=== PATIENT | male | born 1985 ===

== ENCOUNTER 2018-06-16 09:56 | Emergency (ER) | payer MEDICAID ==
[2018-06-16 10:14] VITALS: RESP 18; TEMP 98.3
[2018-06-16] MEDS ORDERED: Tetracaine 0.5% Ophth (OR ONLY) ONE (10:43)
[2018-06-16] MEDS ORDERED: Fluorescein 1 mg Ophthalmic Strip ONE (10:43)
--- NOTE | 2018-06-16 11:26 | C.PDOC ---
History Of Present Illness 33 y/o M p/w R eye pain x 2 days. Patient states was cleaning yesterday and thinks a small piece of metal went into his eye after which he has had constant pain, irritation, watery discharge. Denies discharge of pus, vision change, fever. Time Seen by Provider: 06/16/18 10:04 Chief Complaint (Nursing): Foreign Body Past Medical History Vital Signs: Last Vital Signs Temp 98.3 F 06/16/18 10:04 Pulse 78 06/16/18 10:04 Resp 18 06/16/18 10:04 BP 119/69 06/16/18 10:04 Pulse Ox 100 06/16/18 10:04 Family History: States: No Known Family Hx - Social History Hx Alcohol Use: No Hx Substance Use: No - Immunization History Hx Tetanus Toxoid Vaccination: No Hx Influenza Vaccination: No Hx Pneumococcal Vaccination: No Review Of Systems Except As Marked, All Systems Reviewed And Found Negative. Constitutional: Negative for: Fever Eyes: Negative for: Vision Change Physical Exam - Physical Exam Additional Physical Exam Comments: gen lying in stretcher, eyes closed, nad head nc/at eyes perrl. no eyelid inflammation, no purulent discharge, no hyphema, no pupil abnormality. R eye with punctate foreign object seen on cornea. after staining, no abrasion or saira sign. no dentritic lesions neck supple cv reg rate extremities no edema skin no rash neuro alert ED Course And Treatment O2 Sat by Pulse Oximetry: 100 Medical Decision Making Medical Decision Making: Discussed with Dr. Burgos's office, will see patient in office at 1:30pm today. Disposition Discussed With : Talha Burgos Doctor Will See Patient In The: Office - Disposition Referrals: Talha Burgos [Staff Provider] - Disposition: HOME/ ROUTINE Disposition Time: 11:55 Condition: GOOD Instructions: Foreign Body in Eye Forms: [employer] ([place]uan) - Clinical Impression Clinical Impression: Corneal foreign body
[2018-06-16 12:26] VITALS: BP 127/72; PULSE 75; O2SAT 97
== END 2018-06-16 12:06 | disposition home or self-care (01) ==
LOC: C.ER 09:56
DX: T15.01XA Foreign body in cornea, right eye, initial encounter (principal); X58.XXXA Exposure to other specified factors, initial encounter

== ENCOUNTER 2018-07-05 20:25 | Observation (INO) | payer MEDICAID ==
[2018-07-05 20:38] VITALS: RESP 20
[2018-07-05] MEDS ORDERED: Albuterol-Ipratrop 3 mg / 0.5 (3 ml) UD IH STA (21:27)
[2018-07-05] MEDS ORDERED: Albuterol 0.083% Inhal Sol (2.5 mg/3 mL) UD INH STA (21:27)
[2018-07-05] MEDS ORDERED: Sodium Chloride 0.9% 1,000 ML IV STA (21:30)
[2018-07-05] MEDS ORDERED: Albuterol 0.083% Inhal Sol (2.5 mg/3 mL) UD IH STA (21:31)
[2018-07-05] MEDS ORDERED: Albuterol-Ipratrop 3 mg / 0.5 (3 ml) UD ONE (21:38)
[2018-07-05] MEDS ORDERED: Albuterol 0.083% Inhal Sol (2.5 mg/3 mL) UD ONE (21:38)
[2018-07-05] MEDS ORDERED: Magnesium Sulfate 1 gm in D5W 1 GM/100 ML BAG IV STA (21:58)
[2018-07-05] MEDS ORDERED: Magnesium Sulfate 1 gm in D5W 1 GM/100 ML BAG IVPB ONE (22:07)
--- NOTE | 2018-07-05 22:30 | C.PDOC ---
History Of Present Illness 33 year old male with PMHx of asthma presents to the ED for evaluation of asthma exacerbation for the past 4 days. Patient currently c/o nasal congestion, runny nose, sore throat and wheezing. Patient denies fever, chills, CP, palpitations, rash, recent travel, sick contacts. <Miriam Estrada - Last Filed: 07/05/18 23:04> History Per: Patient History/Exam Limitations: no limitations Onset/Duration Of Symptoms: Days (4) Current Symptoms Are (Timing): Still Present Associated Symptoms: Cough, URI Preciptating Factors: URI Severity: None Recent travel outside of the [place]: No Additional History Per: Patient <Miriam Estrada - Last Filed: 07/05/18 23:04> <Klever Atkins - Last Filed: 07/05/18 23:57> Time Seen by Provider: 07/05/18 21:11 Chief Complaint (Nursing): Cough, Cold, Congestion Past Medical History Reviewed: Historical Data, Nursing Documentation, Vital Signs Vital Signs: Last Vital Signs Temp 98.0 F 07/05/18 20:30 Pulse 86 07/05/18 20:30 Resp 20 07/05/18 20:30 BP 120/77 07/05/18 20:30 Pulse Ox 97 07/05/18 20:30 - Medical History PMH: Asthma Surgical History: No Surg Hx Family History: States: Unknown Family Hx - Social History Hx Alcohol Use: No Hx Substance Use: No - Immunization History Hx Tetanus Toxoid Vaccination: No Hx Influenza Vaccination: No Hx Pneumococcal Vaccination: No <Miriam Estrada - Last Filed: 07/05/18 23:04> Vital Signs: Last Vital Signs Temp 97.9 F 07/05/18 23:46 Pulse 62 07/05/18 23:46 Resp 20 07/05/18 23:46 BP 119/79 07/05/18 23:46 Pulse Ox 97 07/05/18 23:46 <Klever Atkins - Last Filed: 07/05/18 23:57> Review Of Systems Constitutional: Negative for: Fever, Chills ENT: Positive for: Nose Discharge, Nose Congestion, Throat Pain Respiratory: Positive for: Cough, Wheezing. Negative for: Shortness of Breath Gastrointestinal: Negative for: Nausea, Vomiting, Abdominal Pain Skin: Negative for: Rash Neurological: Negative for: Headache <Miriam Estrada - Last Filed: 07/05/18 23:04> Physical Exam - Physical Exam Appears: Non-toxic, No Acute Distress Skin: Normal Color, Warm, Dry, No Rash Head: Atraumatic, Normacephalic Eye(s): bilateral: Normal Inspection Ear(s): Bilateral: Normal Oral Mucosa: Moist Throat: Normal, No Erythema, No Exudate Neck: Normal ROM, Supple Chest: Symmetrical Cardiovascular: Rhythm Regular Respiratory: No Rales, No Rhonchi, Wheezing Gastrointestinal/Abdominal: Soft, No Tenderness Extremity: Normal ROM, No Tenderness, No Swelling Neurological/Psych: Oriented x3, Normal Speech, Normal Cognition Gait: Steady <Miriam Estrada - Last Filed: 07/05/18 23:04> ED Course And Treatment - Laboratory Results Result Diagrams: 07/05/18 22:46 O2 Sat by Pulse Oximetry: 97 (ON RA) Pulse Ox Interpretation: Normal - Radiology CXR: Interpreted by Ak CXR Interpretation: Yes: No Acute Disease Progress Note: Plan: - CXR. - Duoneb x 1. - Albuterol neb x 2. - Solumedrol 125 mg IVP. On re-eval he still wheezing and congested. Mag sulfate and Flonase orederd. Labs are ordered. Case was signed out to Dr. Atkins at 23:00. <Miriam Estrada - Last Filed: 07/05/18 23:04> - Laboratory Results Result Diagrams: 07/05/18 22:46 07/05/18 22:46 Lab Results: Total Bilirubin 0.5 mg/dL (0.2-1.3) 07/05/18 22:46 AST 28 U/L (17-59) 07/05/18 22:46 ALT 20 U/L (21-72) L 07/05/18 22:46 Alkaline Phosphatase 80 U/L (38-126) 07/05/18 22:46 Total Protein 7.4 g/dL (6.3-8.3) 07/05/18 22:46 Albumin 4.6 g/dL (3.5-5.0) 07/05/18 22:46 Globulin 2.8 gm/dL (2.2-3.9) 07/05/18 22:46 Albumin/Globulin Ratio 1.6 (1.0-2.1) 07/05/18 22:46 <Klever Atkins - Last Filed: 07/05/18 23:57> Disposition - Disposition Disposition Time: 23:08 <Miriam Estrada - Last Filed: 07/05/18 23:04> <Klever Atkins - Last Filed: 07/05/18 23:57> - Disposition Disposition: HOSPITALIZED Condition: FAIR Forms: [facility] (South African) - Clinical Impression Clinical Impression: Asthma exacerbation - PA / RESEARCH [employer] ENGINEER / Resident Statement MD/DO has reviewed & agrees with the documentation as recorded. - Scribe Statement The provider has reviewed the documentation as recorded by the Scribe Deon Wagner All medical record entries made by the Scribe were at my direction and personally dictated by me. I have reviewed the chart and agree that the record accurately reflects my personal performance of the history, physical exam, medical decision making, and the department course for this patient. I have also personally directed, reviewed, and agree with the discharge instructions and disposition. <Miriam Estrada - Last Filed: 07/05/18 23:04> Physician Patient Turnover Patient Signed Over To: Klever Atkins Handoff Comments: labs pending, re-eval, dispo <Miriam Estrada - Last Filed: 07/05/18 23:04>
[2018-07-05] MEDS ORDERED: Fluticasone Nasal 50 mcg/Spray NAS STA (22:41)
[2018-07-05 23:02] LABS: BASO # 0.1 K/uL (0.0-0.2); BASO % 0.6 % (0.0-2.0); EOS # 0.8 K/uL (0.0-0.7); HEMOGLOBIN 13.6 g/dL (12.0-18.0); LYMPH # 2.2 K/uL (1.0-4.3); LYMPH % 22.1 % (20.0-40.0); MEAN CELL VOLUME 85.9 fL (80.0-94.0); MEAN CORPUSCULAR HEMOGLOBIN 29.1 pg (27.0-31.0); MEAN CORPUSCULAR HGB CONC 33.9 g/dL (33.0-37.0); MEAN PLATELET VOLUME 8.3 fL (7.2-11.7); MONO # 0.7 K/uL (0.0-0.8); MONO % 7.6 % (0.0-10.0); NEUT % 61.7 % (50.0-75.0); RBC 4.67 Mil/uL (4.40-5.90); RED CELL DISTRIBUTION WIDTH 13.1 % (11.5-14.5); WHITE BLOOD COUNT 9.7 K/uL (4.8-10.8)
[2018-07-05 23:06] LABS: ALB/GLOB RATIO 1.6 (1.0-2.1); ALBUMIN 4.6 g/dL (3.5-5.0); ALT/SGPT 20 U/L (21-72); AST/SGOT 28 U/L (17-59); BLOOD UREA NITROGEN 14 mg/dL (9-20); CALCIUM 8.9 mg/dl (8.6-10.4); GFR NON-AFRICAN AMERICAN > 60
[2018-07-06] MEDS ORDERED: Albuterol-Ipratrop 3 mg / 0.5 (3 ml) UD INH PRN (01:03)
[2018-07-06] MEDS ORDERED: cefTRIAXone IV 1 gm in Dextros 50 ML IVPB SCH (10:00)
[2018-07-06] MEDS ORDERED: cefTRIAXone 1 gm in cefTRIAXone IV 1 gm in Dextros 50 ML IVPB SCH (10:00)
--- NOTE | 2018-07-06 10:01 | RAD ---
Date of service: 07/05/2018 HISTORY: Cough COMPARISON: No prior. TECHNIQUE: Chest PA and lateral FINDINGS: LINES AND TUBES: None. LUNG AND PLEURA: The lungs are well inflated and clear. No pleural effusion or pneumothorax. HEART AND MEDIASTINUM: The heart is not enlarged. No aortic atherosclerotic calcifications present. The hilar and mediastinal contours are within normal limits. SKELETAL STRUCTURES: The bony structures are within normal limits for the patient's age. VISUALIZED UPPER ABDOMEN: Normal. OTHER FINDINGS: None. IMPRESSION: No active pulmonary disease.
--- NOTE | 2018-07-06 12:19 | CP.PCM.HP ---
History of Present Illness - History of Present Illness History of Present Illness: 33 year old male with PMHx of asthma presents to the ED for evaluation of asthma exacerbation for the past 4 days. Patient currently c/o nasal congestion, runny nose, sore throat and wheezing Present on Admission - Present on Admission Any Indicators Present on Admission: No Review of Systems - Constitutional Constitutional: absent: As Per HPI, Anorexia, Chills, Daytime Sleepiness, Excessive Sweating, Fatigue, Fever, Frequent Falls, Headache, Increased Appetite, Lethargy, Malaise, Night Sweats, Snoring, Sleep Apnea, Weight Gain, Weight Loss, Weakness, Other - EENT Eyes: absent: As Per HPI, Blind Spots, Blurred Vision, Change in Vision, Decreased Night Vision (WHEEZING ), Diplopia, Discharge, Dry Eye, Exophthalmos, Floaters, Irritation, Itchy Eyes, Loss of Peripheral Vision, Pain, Photophobia, Requires Corrective Lenses, Sees Flashes, Spots in Vision, Tunnel Vision, Other Visual Disturbances, Loss of Vision, Other Past Patient History - Past Medical History & Family History Past Medical History?: Yes - Past Social History Smoking Status: Never Smoked - PULMONARY Hx Asthma: Yes - MUSCULOSKELETAL/RHEUMATOLOGICAL Hx Falls: No - PSYCHIATRIC Hx Substance Use: No - SURGICAL HISTORY Hx Surgeries: Yes Hx Musculoskeletal Surgery: Yes (lumbar) - ANESTHESIA Hx Anesthesia: Yes Hx Anesthesia Reactions: No Meds Allergies/Adverse Reactions: Allergies Allergy/AdvReac Type Severity Reaction Status Date / Time apple Allergy ITCHING Verified 07/06/18 07:45 pollen extracts Allergy COUGH Verified 07/06/18 07:45 shrimp Allergy RASH Verified 07/06/18 07:45 Physical Exam - Constitutional Appears: Well - Head Exam Head Exam: ATRAUMATIC, NORMAL INSPECTION, NORMOCEPHALIC - Eye Exam Eye Exam: EOMI, Normal appearance, PERRL - ENT Exam ENT Exam: Mucous Membranes Moist - Respiratory Exam Respiratory Exam: Rhonchi, Wheezes - Cardiovascular Exam Cardiovascular Exam: REGULAR RHYTHM - GI/Abdominal Exam GI & Abdominal Exam: Normal Bowel Sounds, Soft. absent: Tenderness - Extremities Exam Extremities exam: Positive for: normal inspection - Back Exam Back exam: NORMAL INSPECTION - Neurological Exam Neurological exam: Alert, CN II-XII Intact, Normal Gait, Oriented x3, Reflexes Normal - Psychiatric Exam Psychiatric exam: Anxious Results - Vital Signs Recent Vital Signs: Last Vital Signs Temp 98.4 F 07/06/18 08:00 Pulse 71 07/06/18 08:00 Resp 20 07/06/18 08:00 BP 110/69 07/06/18 08:00 Pulse Ox 97 07/06/18 08:00 - Labs Result Diagrams: 07/05/18 22:46 07/05/18 22:46 Labs: Laboratory Results - last 24 hr 07/05/18 07/05/18 22:46 22:46 WBC 9.7 RBC 4.67 Hgb 13.6 Hct 40.1 MCV 85.9 MCH 29.1 MCHC 33.9 RDW 13.1 Plt Count 303 MPV 8.3 Neut % (Auto) 61.7 Lymph % (Auto) 22.1 Park % (Auto) 7.6 Eos % (Auto) 8.0 H Baso % (Auto) 0.6 Neut # (Auto) 6.0 Lymph # (Auto) 2.2 Park # (Auto) 0.7 Eos # (Auto) 0.8 H Baso # (Auto) 0.1 Sodium 140 Potassium 3.1 L Chloride 102 Carbon Dioxide 23 Anion Gap 18 BUN 14 Creatinine 0.7 L Est GFR ( Amer) > 60 Est GFR (Non-Af Amer) > 60 Random Glucose 141 H Calcium 8.9 Total Bilirubin 0.5 AST 28 ALT 20 L Alkaline Phosphatase 80 Total Protein 7.4 Albumin 4.6 Globulin 2.8 Albumin/Globulin Ratio 1.6 Assessment & Plan (1) Respiratory infection Status: Acute (2) Asthma exacerbation Status: Acute
[2018-07-06 15:44] VITALS: BP 124/80; TEMP 97.8; O2SAT 96
[2018-07-06 15:59] VITALS: PULSE 88
[2018-07-08] MEDS ORDERED: Pneumococcal 23-Valent Vaccine IM ONE (10:03)
== END 2018-07-06 19:53 | disposition left against medical advice (07) ==
LOC: C.ER 20:25 → C.9E 23:55 → C.5S 07-06 00:46
PROVIDERS: ADMIT Internal Medicine Cardiovascular Disease; ATTEND Internal Medicine Cardiovascular Disease
DX: J45.901 Unspecified asthma with (acute) exacerbation (principal); J98.8 Other specified respiratory disorders
CPT/HCPCS: 71046; 80053; 85025; 87040; 94640; 96374; G0378; J0696; J2930; J3475; J7030